=== PATIENT | female | born 1995 | race Two or more races ===

== ENCOUNTER 2023-03-26 03:04 | Emergency (ER) | payer OTHER ==
[~2023-03-26] VITALS: Ht 162.6 cm; Wt 63.5 kg
== END 2023-03-26 12:42 | disposition home or self-care (01) ==
LOC: ER 03:04 → EMR PED 03:04 → ER 04:43
DX: N39.0 Urinary tract infection, site not specified (principal); R50.9 Fever, unspecified; R11.10 Vomiting, unspecified; Z20.822 Contact with and (suspected) exposure to COVID-19